=== PATIENT | female | born 2000 | race Asian ===

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

== ENCOUNTER 2019-07-08 11:30 | Emergency (ER) | payer BC, SELFPAY ==
[2019-07-08 11:31] VITALS: BP 130/101; PULSE 105; RESP 16; TEMP 36.9; O2SAT 96; BMI 24.7
--- NOTE | 2019-07-08 12:17 | ED.VIS.LOWEX ---
History of Present Illness Informant: Patient, Significant Other Occurred: Days - 2 days ago Mechanism/Context: - - denies injury Onset: Days - 2 days Context: Sudden Onset Timing: Continuous Quality of Pain: Aching Location: left knee Current Severity: Moderate Maximum Severity: Severe Worsened by: movement, walking Relieved by: rest Associated Symptoms: Negative for: Parasthesia, Weakness, Loss of Funtion Narrative: 19-year-old female presents with left knee pain. Patient states that she has had chronic knee pain for the last 6 years since she [place], and has been following up with her doctor and [facility] where she lives. She is currently here because she is enrolled in the local [employer]. 2 days ago she was walking and had a sudden onset of pain in her left knee. She has a known ganglion cyst that was seen on MRI 6 months ago that she fears has ruptured. Having pain and swelling. No trauma. No numbness or tingling. No fevers. She is still able to ambulate. She has an appointment in less than 2 weeks with a local orthopedic doctor. Tetanus Immunization: Unknown Prior similar symptoms: Yes Recent Illness/Hospitalization: No <Atilio Jacob - Last Filed: 07/08/19 12:17> <Chris Martinez - Last Filed: 07/08/19 13:17> Chief Complaint: Lower Extremity Injury Past Medical History Prior records reviewed: Yes Past Medical History: None Surgical History: - - left knee ACL repair Lives: Roommate Smoking Status: Former smoker Alcohol: Occasional <Atilio Jacob - Last Filed: 07/08/19 12:17> <Chris Martinez - Last Filed: 07/08/19 13:17> - Allergies and Home Meds Allergies/Adverse Reactions: Allergies No Known Allergies Allergy (Verified 07/08/19 11:31) Primary Care Physician: Emmie Guerrero NP-C [NON-STAFF] - Review of Systems All systems negative except as indicated Musculoskeletal: Reports: Swelling, Extremity Pain <Atilio Jacob - Last Filed: 07/08/19 12:17> Physical Exam Vital Signs/Narrative: Vital Signs Temp Pulse Resp BP Pulse Ox 07/08/19 11:31 98.4 F 105 H 16 130/101 H 96 Inital Vital Signs reviewed: Yes - Extremity Exam Left Knee: - - Mild anterior knee swelling. No redness or warmth. Normal range of motion actively. Neurovascularly intact distally. Able to bear weight and ambulate General: Well nourished, Well developed Head: Normocephalic, Atraumatic Eyes: Perrl, EOMI ENT: No Trauma, Moist Mucous Membranes Neck: Nontender, Full ROM Cardiovascular: Regular rate, Regular rhythm, No murmurs Respiratory: No distress, CTA bilaterally, Chest nontender Abdomen: Soft, Nontender, Nondistended, Normal bowel sounds, No masses Back: Nontender Skin: Normal color, No rash Neurological: Alert, Oriented x3, Normal Strength, Normal Sensation <Atilio Jacob - Last Filed: 07/08/19 12:17> Vital Signs/Narrative: Vital Signs Temp Pulse Pulse Pulse Pulse Resp BP 07/08/19 12:52 97.9 F 16 07/08/19 12:51 77 75 84 07/08/19 11:31 98.4 F 105 H 16 130/101 H BP BP BP Pulse Ox 07/08/19 12:52 100 07/08/19 12:51 127/88 H 132/93 H 127/96 H 07/08/19 11:31 96 <Chris Martinez - Last Filed: 07/08/19 13:17> Diagnostic/Tx/Re-eval - Medical Decision Making Patient has no sign of infection of her knee. She did not suffer trauma. She is neurovascularly intact. Able to ambulate. At this time this is an acute on chronic issue she has close follow-up scheduled with orthopedic surgery and just less than 2 weeks. Patient requesting MRI. Discussed that at this time it is not emergent and it is not indicated. She was advised to continue to see orthopedics as scheduled rest ice elevate use Motrin and Tylenol or return here for worsening symptoms which were discussed. <Atilio Jacob - Last Filed: 07/08/19 12:17> - Medical Decision Making Saw the patient in conjunction with physician child life assistant. She has ongoing left knee pain. She had a cyst that ruptured. She is planning to follow-up with Dr. Johnson. She is requesting an MRI because her previous doctor did not know what it is. She has good range of motion. Skin is normal. Neurovascularly intact. Patient will be treated with pain medication and will follow-up with orthopedics. She declined crutches, stating that she will obtain them from the wellness center. Prior to discharge, she was complaining of dizziness and lightheadedness, worse with ambulation. Reevaluated her. Vitals were unremarkable. I advised that we should check orthostatics and get her something to eat. When I went back to reevaluate her, the nurse said that she had left. She was planning to eat at school and she was feeling better. <Chris Martinez - Last Filed: 07/08/19 13:17> ED Disposition <Atilio Jacob - Last Filed: 07/08/19 12:17> <Chris Martinez - Last Filed: 07/08/19 13:17> - Plan for ED Patient: Disposition: Home or Assisted Living Diagnosis: Left knee pain Instructions: Ganglion Cyst Referrals: Emmie Guerrero NP-C [NON-STAFF] -
[2019-07-08 12:51] VITALS: BP 127/88; BP 127/96; BP 132/93; PULSE 75; PULSE 77; PULSE 84
[2019-07-08 12:52] VITALS: RESP 16; TEMP 36.6; O2SAT 100
--- NOTE | 2019-07-08 12:53 | ED.RN ---
pt had c/o weakness, SOB, and dizziness. Vital signs normal, respirations even and unlabored at 16. Dr. Martinez notified, orthostatics performed and negative. Pt stated she was happy everything was normal. Ambulating slowly but with little pain. Denied need for crutches, stated she would get them from the wellness center if needed. Reviewed discharge instructions and S/S indicating need to return to ER. Offered food and drink but pt stated she wanted to go to the college cafeteria because they had her favorite food.
== END 2019-07-08 12:55 | disposition home or self-care (01) ==
PROVIDERS: Emergency Provider Physician Assistant Medical
DX: M25.562 Pain in left knee (principal); G89.29 Other chronic pain; Z79.899 Other long term (current) drug therapy; Z87.891 Personal history of nicotine dependence
CPT/HCPCS: 99283

== ENCOUNTER 2020-12-13 14:55 | Emergency (ER) | payer BC, SELFPAY ==
[2020-12-13 14:57] VITALS: BP 153/107; PULSE 90; RESP 18; TEMP 36.6; O2SAT 98; BMI 27.3
--- NOTE | 2020-12-13 15:31 | EKG12_ITS ---
Test Reason : EDEMA Blood Pressure : / mmHG Vent. Rate : 070 BPM Atrial Rate : 070 BPM P-R Int : 134 ms QRS Dur : 080 ms QT Int : 346 ms P-R-T Axes : 044 076 039 degrees QTc Int : 373 ms Normal sinus rhythm Normal ECG Confirmed by KARL TERRELL, NELLY ([id number]), editor publications ISMA HERNANDEZ ([id number]) on 12/17/2020 10:48:41 AM Referred By: Confirmed By:NELLY BARAJAS MD
--- NOTE | 2020-12-13 15:40 | US_ITS ---
STUDY: THYROID ULTRASOUND REASON FOR EXAM: Female, 20 years old. THYROID ENLARGEMENT TECHNIQUE: Ultrasound evaluation of the thyroid was performed with real-time and static pettit-scale imaging. COMPARISON: None. FINDINGS: RIGHT LOBE: The right lobe of the thyroid gland measures 4.8 x 0.8 x 1.7 cm. There is a homogeneous echotexture. Within the posterior aspect of the midpole there is a partially solid 10.0 x 6.0 x 12.1 mm nodule that demonstrates mild internal vascularity. LEFT LOBE: The left lobe of the thyroid gland measures 4.4 x 0.9 x 1.2 cm. There is a homogeneous echotexture. There are no demonstrated solid, cystic or complex lesions. ISTHMUS: The isthmus measures 0.21 cm. There is a there is a prominent lymph node lateral to the left lobe of the thyroid gland measuring 2.2 x 0.7 x 0.9 cm. US/Thyroid IMPRESSION: Enlarged thyroid gland. 10.0 x 6.0 x 12.1 mm nodule within the right lobe of the gland. Prominent adjacent lymph node. Electronically Signed: Lynn Rust MD at 17:04 EST Tel , Service support ,
--- NOTE | 2020-12-13 15:45 | ED.DCSUM_ITS ---
History of Present Illness Chief Complaint: Edema Informant: Patient Narrative: 20-year-old female presenting with neck swelling. Patient states she saw her doctor in [place] about 4 weeks ago had some mild enlargement of the anterior neck. She tells me that she had blood work performed and has been on her phone. She had normal TSH T4 T3. She had negative RPR, HIV, hepatitis panel, cholesterol, and CMP. Noted to have low vitamin D levels. Patient states that over the past 4 weeks the neck has become more swollen. She notes fevers with T-max of around 100, weight loss despite increased appetite, worsening neck pain with difficulty swallowing. She does note some palpitations. She was referred to the emergency department from the [facility]. Past Medical History - Allergies and Home Meds Allergies/Adverse Reactions: Allergies No Known Allergies Allergy (Verified 12/13/20 14:56) Primary Care Physician: Adela Odom,Out of [NON-STAFF] - Past Medical History: None Surgical History: - - left knee ACL repair Lives: - - [employer] Smoking Status: Former smoker Drugs: None Review of Systems General: Reports: Fever, Malaise, Sweats, Weight loss. Denies: Chills Eyes: Denies: Visual changes - bilaterally, Diplopia ENT: Denies: Rhinorrhea, Sore throat Cardiovascular: Reports: Palpitations. Denies: Chest pain Respiratory: Denies: Dyspnea, Cough, Dyspnea on exertion Gastrointestinal: Denies: Abdominal pain, Nausea, Vomiting, Diarrhea, Melena, Hematochezia Genitourinary: Denies: Dysuria, Hematuria, Frequency Musculoskeletal: Reports: Neck pain. Denies: Back pain, Extremity Pain Skin: Denies: Rash, Wounds Neurological: Denies: Headache, Weakness, Numbness Endocrine: Reports: Polydipsia Physical Exam Vital Signs/Narrative: Vital Signs Temp Pulse Resp BP Pulse Ox 12/13/20 14:57 97.9 F 90 18 153/107 H 98 Inital Vital Signs reviewed: Yes General: Well nourished, Well developed, No Acute Distress Head: Normocephalic, Atraumatic Eyes: Perrl, EOMI ENT: Moist mucous membranes, No rhinorrhea Neck: Supple, - - To palpation diffusely of the neck. There is particular apparent enlargement of the thyroid gland. Cardiovascular: Regular rate, Regular rhythm, No murmurs Respiratory: No distress, CTA bilaterally, Chest nontender Abdomen: Soft, Nontender, Nondistended, Normal bowel sounds Back: Nontender, Normal Inspection Extremities: Nontender, No edema Skin: Normal color, No rash, - - Skin feels moist. Neurological: Alert, Oriented x3, Cranial nerves II-XII grossly intact, Normal Strength, Normal Sensation Psychological: Normal affect, Normal Mood Diagnostic/Tx/Re-eval Clinical Impression(s) from Imaging Studies Thyroid Ultrasound 12/13/20 15:40 IMPRESSION: Enlarged thyroid gland. 10.0 x 6.0 x 12.1 mm nodule within the right lobe of the gland. Prominent adjacent lymph node. Electronically Signed: Lynn Rust MD at 17:04 EST Tel , Service support , Soft Tissue Neck CT 12/13/20 17:35 IMPRESSION: Enlargement of the thyroid gland as visualized on patient''s recent ultrasound. Minimal opacification of the left maxillary and ethmoid sinuses consistent with a history of sinusitis. Electronically Signed: Lynn Rust MD at 18:20 EST Tel , Service support , Laboratory Last Values WBC 8.1 K/mm3 (4.4-11.0) 12/13/20 16:00 RBC 4.36 M/mm3 (4.2-5.4) 12/13/20 16:00 Hgb 13.1 g/dL (12.0-15.0) 12/13/20 16:00 Hct 40.7 % (37-47) 12/13/20 16:00 MCV 93.3 fL (81-99) 12/13/20 16:00 MCH 30.0 pg (27.0-32.0) 12/13/20 16:00 MCHC 32.2 g/dL (32-36) 12/13/20 16:00 RDW Std Deviation 42.5 fl (35.1-43.9) 12/13/20 16:00 RDW Coeff of Maira 12.4 % (11.6-14.6) 12/13/20 16:00 Plt Count 246 K/mm3 (150-450) 12/13/20 16:00 MPV 9.8 fl (6.2-12.0) 12/13/20 16:00 Immature Gran % (Auto) 0.400 % (0.0-0.9) 12/13/20 16:00 Neut % (Auto) 65.7 % (47-70) 12/13/20 16:00 Lymph % (Auto) 22.2 % (19-41) 12/13/20 16:00 [place] % (Auto) 8.3 % (0-10) 12/13/20 16:00 Eos % (Auto) 2.7 % (0-5) 12/13/20 16:00 Baso % (Auto) 0.7 % (0-1) 12/13/20 16:00 Absolute Neuts (auto) 5.3 X10^3/uL (2.0-7.7) 12/13/20 16:00 Absolute Lymphs (auto) 1.79 X10^3/uL (0.83-4.51) 12/13/20 16:00 Nucleated RBC % 0 % (0-5) 12/13/20 16:00 ESR 7 mm/hr (0-30) 12/13/20 16:00 Sodium 137 mmol/L (136-145) 12/13/20 16:00 Potassium 4.1 mmol/L (3.5-5.1) 12/13/20 16:00 Chloride 105 mmol/L (98-107) 12/13/20 16:00 Carbon Dioxide 27.0 mmol/L (21.0-32.0) 12/13/20 16:00 Anion Gap 5 (5-15) 12/13/20 16:00 BUN 16 mg/dL (7-18) 12/13/20 16:00 Creatinine 0.76 mg/dL (0.55-1.02) 12/13/20 16:00 Estim Creat Clear Calc 96.86 ml/min 12/13/20 16:00 Est GFR (MDRD) Af Amer 122 mL/min (>60) 12/13/20 16:00 Est GFR (MDRD) Non-Af 101 mL/min (>60) 12/13/20 16:00 BUN/Creatinine Ratio 20.9 RATIO (10-20) H 12/13/20 16:00 Glucose 74 mg/dL (74-106) 12/13/20 16:00 Calcium 9.2 mg/dL (8.5-10.1) 12/13/20 16:00 Total Bilirubin 0.40 mg/dL (0.20-1.00) 12/13/20 16:00 AST 14 U/L (15-37) L 12/13/20 16:00 ALT 20 U/L (13-56) 12/13/20 16:00 Alkaline Phosphatase 69 U/L (45-117) 12/13/20 16:00 C-React Prot Ext Range 22.10 mg/L (0.0-3.0) H 12/13/20 16:00 Total Protein 7.5 g/dL (6.4-8.2) 12/13/20 16:00 Albumin 3.8 g/dL (3.2-5.0) 12/13/20 16:00 Globulin 3.7 g/dL (2.2-4.2) 12/13/20 16:00 Albumin/Globulin Ratio 1.0 RATIO (0.9-2.4) 12/13/20 16:00 TSH 1.29 uIU/mL (0.358-3.74) 12/13/20 16:00 Free T4 1.09 ng/dL (0.76-1.46) 12/13/20 16:00 Free T3 pg/dL 2.9 pg/mL (2.18-3.98) 12/13/20 16:00 Serum , Qual NEGATIVE Negative 12/13/20 16:00 - EKG Initial EKG Interpretation: Sinus Rhythm - EKG demonstrates a normal sinus rhythm at a rate of 70. - Medical Decision Making Our testing essentially come back negative from the blood work standpoint. There is some thyroid enlargement of the thyroid nodule that will need followed. I see because of her concerning symptoms and normal thyroid functioning I did discuss the case with her electric hoist operator Dr. Tucker. At this point we will let the patient go home. Ordered TPO antibodies. She can follow-up with her primary care doctor or with Dr. Tucker if she wants to see somebody locally but she can follow with primary care as well. ED Disposition - Plan for ED Patient: Disposition: Home or Assisted Living Diagnosis: Thyroid enlargement, Thyroid nodule, Neck pain Instructions: Thyroid Antibody Referrals: [facility] Doctor,Out of [NON-STAFF] - Arnulfo Tucker MD [STAFF PHYSICIAN] - (for Endocrinology ) Enrique Victor MD [STAFF PHYSICIAN] - (for primary care locally) Additional Instructions: Thyroid antibodies were ordered today. These can be checked on line but I also recommend you follow-up locally with either one of the above physicians.
[2020-12-13] MEDS: Ketorolac 30 MG/ML Syringe IV (16:08)
[2020-12-13 16:11] VITALS: BP 143/102; PULSE 87; RESP 15; O2SAT 100
[2020-12-13 16:12] LABS: Absolute Lymphocyte Count 1.79 X10^3/uL (0.83-4.51); Absolute Neutrophil Count 5.3 X10^3/uL (2.0-7.7); Basophil# 0.06 X10^3/uL; Basophil% 0.7 % (0-1); Eosinophil# 0.22 X10^3/uL; Eosinophils% 2.7 % (0-5); Hematocrit 40.7 % (37-47); Hemoglobin 13.1 g/dL (12.0-15.0); Lymphocyte # 1.79 X10^3/ul (4.0); Lymphocyte % 22.2 % (19-41); Mean Corp Hgb Conc 32.2 g/dL (32-36); Mean Corpuscular Volume 93.3 fL (81-99); Mean Platelet Vol. 9.8 fl (6.2-12.0); Monocyte# 0.67 X10^3/uL; Monocyte% 8.3 % (0-10); NRBC Flagged by Analyzer 0 % (0-5); Neutrophil % 65.7 % (47-70); Platelet Count 246 K/mm3 (150-450); RBC Distribution Width CV 12.4 % (11.6-14.6); RBC Distribution Width SD 42.5 fl (35.1-43.9); Red Blood Count 4.36 M/mm3 (4.2-5.4); White Blood Count 8.1 K/mm3 (4.4-11.0)
[2020-12-13 16:31] LABS: Erythrocyte Sedimentation Rate 7 mm/hr (0-30)
[2020-12-13 16:38] LABS: AST(SGOT) 14 U/L (15-37); Alanine Aminotransfer ALT/SGPT 20 U/L (13-56); Albumin, Serum 3.8 g/dL (3.2-5.0); Alkaline Phosphatase 69 U/L (45-117); Anion Gap 5 (5-15); BUN 16 mg/dL (7-18); BUN/Creat Ratio 20.9 RATIO (10-20); Calcium,Total 9.2 mg/dL (8.5-10.1); Chloride 105 mmol/L (98-107); Creatinine, Serum 0.76 mg/dL (0.55-1.02); EST Glomerular Filtration Rate 101 mL/min (>60); Est Glom Filt Rate - Afr Amer 122 mL/min (>60); Estimated Creatinine Clearance 96.86 ml/min; Free T3 2.9 pg/mL (2.18-3.98); Globulin 3.7 g/dL (2.2-4.2); Glucose 74 mg/dL (74-106); Potassium 4.1 mmol/L (3.5-5.1); Protein, Total 7.5 g/dL (6.4-8.2); Sodium Level 137 mmol/L (136-145); T4 Free Direct 1.09 ng/dL (0.76-1.46); Thyroid Stim Hormone (TSH) 1.29 uIU/mL (0.358-3.74)
[2020-12-13 16:42] LABS: Internal QC Validated? YES +Cl - CLEAR BKGD; Pregnancy, Serum, hCG Quali. NEGATIVE Negative
--- NOTE | 2020-12-13 17:35 | CT_ITS ---
STUDY: CT SOFT TISSUE NECK WITH CONTRAST REASON FOR EXAM: Female, 20 years old. NECK SWELLING AND PAIN X 5 DAYS RADIATION DOSAGE (If Supplied By Facility): CTDIvol = ( 16.86 ) mGy, DLP = ( 421.16 ) mGycm TECHNIQUE: The patient was scanned in a multi-detector CT scanner. High resolution transaxial imaging was performed following intravenous administration of 100 CC ISOVUE 300. Sagittal and coronal images were reconstructed. Individualized dose optimization techniques were used for this CT. COMPARISON: Thyroid ultrasound dated 12/13/2020. FINDINGS: Normal bilateral parotid glands. Normal bilateral yarding and folding machine operator spaces. Normal bilateral parapharyngeal spaces. Normal bilateral carotid spaces. Normal bilateral sublingual and submandibular glands and spaces. Normal visualized nasopharynx. Normal retropharyngeal space. Normal perivertebral space. Normal visualized bilateral faucial tonsils. The visualized tongue, tongue base and oropharynx are normal. The visualized cervical lymph nodes (levels I-) are within normal size limits, and maintain normal morphology. There is no demonstrated solid or cystic mass lesion. There is no abnormal contrast enhancement. Normal epiglottis, bilateral vallecula and hypopharynx. The pre-epiglottic and paraglottic adipose spaces are normal. Normal visualized bilateral piriform sinuses, aryepiglottic folds, vocal cords, and arytenoid-cricoid articulations. Normal subglottic trachea. The thyroid gland is mildly enlarged as visualized on the patient''s recent ultrasound. Normal visualized pulmonary apices. There is minimal opacification of the left maxillary and ethmoid sinuses. Normal visualized cervical spine. CT/Soft Tissue Neck WITH Contrast IMPRESSION: Enlargement of the thyroid gland as visualized on patient''s recent ultrasound. Minimal opacification of the left maxillary and ethmoid sinuses consistent with a history of sinusitis. Electronically Signed: Lynn Rust MD at 18:20 EST Tel , Service support ,
[2020-12-13 18:00] VITALS: BP 128/88; PULSE 85; RESP 18; O2SAT 95
[2020-12-13 18:51] VITALS: BP 117/68; PULSE 80; RESP 18; O2SAT 98
[2020-12-15 09:00] LABS: Thyroid Peroxidase AB < 9 IU/mL (0-34)
== END 2020-12-13 18:51 | disposition home or self-care (01) ==
PROVIDERS: Emergency Provider Emergency Medicine; PCP Pediatrics
DX: E04.1 Nontoxic single thyroid nodule (principal); Z87.891 Personal history of nicotine dependence
CPT/HCPCS: 70491; 76536; 80053; 84439; 84443; 84481; 84703; 85025; 85652; 86140; 86376; 93005; 96374; 99284; Q9967; A4216